=== PATIENT | male | born 1990 | race Caucasian/White ===

== ENCOUNTER 2019-11-01 13:26 | Emergency (ER) | payer MEDICAID, SELFPAY ==
[~2019-11-01] VITALS: Ht 170.2 cm; Wt 74.8 kg
--- NOTE | 2019-11-01 13:45 | NUR ---
Patient discharged to home in stable condition. Written and verbal after care instructions given. Patient verbalizes understanding of instructions. Stressed follow up or return to ER for worsening s/s. Addendum: 11/01/19 at 1458 by JACIEL RA SAT WHILE WALKING AND TALKING, 100%.
== END 2019-11-01 13:45 | disposition home or self-care (01) ==
LOC: ER 13:26
DX: R42 Dizziness and giddiness (principal); R53.83 Other fatigue; R07.9 Chest pain, unspecified; Z20.828 Contact with and (suspected) exposure to other viral communicable diseases
CPT/HCPCS: 99283; U0003; A4663

== ENCOUNTER 2019-11-03 20:32 | Emergency (ER) | payer MEDICAID ==
[~2019-11-03] VITALS: Ht 170.2 cm; Wt 74.8 kg
--- NOTE | 2019-11-03 21:03 | NUR ---
DR Muniz ordered rectal temp. Result is 100.5.
[2019-11-03] MEDS ORDERED: ASPIRIN 325 MG TABLET PO ONE (21:15)
[2019-11-03] MEDS ORDERED: LORAZEPAM 2 MG/1 ML VIAL IM ONE (21:15)
[2019-11-03 21:21] LABS: BASOPHILS % (AUTO) 0.2 % (0.0-2.0); EOSINOPHILS % (AUTO) 0.4 % (0.0-7.0); HEMATOCRIT 42.3 % (36.7-47.1); HEMOGLOBIN 14.7 g/dL (12.5-16.3); LYMPHOCYTES # (AUTO) 1.1 K/uL (20.0-40.0); LYMPHOCYTES % (AUTO) 8.9 % (20.5-51.5); MEAN CORPUSCULAR HGB CONC 35 g/dL (32.5-36.3); MEAN CORPUSCULAR VOLUME 83.5 fL (73.0-96.2); MONOCYTES # (AUTO) 0.9 K/uL (2.0-10.0); MONOCYTES % (AUTO) 6.9 % (0.0-11.0); NEUTROPHILS # (AUTO) 10.3 K/uL (1.8-8.9); NEUTROPHILS % (AUTO) 83.6 % (38.5-71.5); PLATELET COUNT (AUTO) 235 K/uL (152-348); RED BLOOD CELL COUNT(AUTO) 5.06 MIL/uL (4.06-5.63); WHITE BLOOD COUNT (AUTO) 12.3 K/uL (3.6-10.2)
[2019-11-03] MEDS ORDERED: LORAZEPAM 2 MG/1 ML VIAL ONE (21:21)
[2019-11-03] MEDS ORDERED: ONDANSETRON ODT 4 MG TAB.RAPDIS ONE (21:23)
[2019-11-03 21:24] LABS: CREATININE 1.3 mg/dL (0.6-1.3); POTASSIUM 3.4 mmol/L (3.5-5.1)
[2019-11-03 21:29] LABS: BILIRUBIN,DIRECT 0.2 mg/dL (0.0-0.2); BILIRUBIN,TOTAL 0.4 mg/dL (0.2-1.0); TOTAL PROTEIN, SERUM 7.3 g/dL (6.4-8.2)
[2019-11-03 21:48] LABS: CREATINE KINASE, TOTAL 128 U/L (39-308)
[2019-11-03 21:53] LABS: ETHANOL < 3 MG/DL (0-0)
[2019-11-03 22:46] LABS: *AMPHETAMINE, URINE NEGATIVE (NEGATIVE); *BARBITURATE, URINE NEGATIVE (NEGATIVE); *CANNABINOID, URINE NEGATIVE (NEGATIVE); *COCCAINE, URINE NEGATIVE (NEGATIVE); *OPIATE, URINE NEGATIVE (NEGATIVE); *PHENCYCLIDINE SCREEN,URINE NEGATIVE (NEGATIVE)
--- NOTE | 2019-11-04 | NUR ---
Patient states CP is better stating pain is 2/10 from 9/10.
[2019-11-04 01:02] VITALS: BP 122/50
--- NOTE | 2019-11-04 01:03 | NUR ---
Patient discharged to home in stable condition WITH GIRLFRIEND TAKING PATIENT HOME. Written and verbal after care instructions given. Patient verbalizes understanding of instructions. Stressed follow up or return to ER for worsening s/s.
== END 2019-11-04 01:04 | disposition home or self-care (01) ==
LOC: ER 20:35
DX: R07.9 Chest pain, unspecified (principal); R06.02 Shortness of breath; R42 Dizziness and giddiness; D72.810 Lymphocytopenia; E87.1 Hypo-osmolality and hyponatremia; E87.6 Hypokalemia
CPT/HCPCS: 36415 ×2; 71045; 80048; 80076; 80307 ×2; 82550; 84484 ×2; 85025; 85379; 93005 ×2; 96372; 99285; J2060; 70030-TC; A4663; G0480; Q0162